=== PATIENT | male | born 1990 | race Caucasian/White ===

== ENCOUNTER 2023-03-09 17:00 | Emergency (ER) | payer OTHER, SELFPAY ==
--- NOTE | 2023-03-09 17:16 | ED.URI ---
HPI - URI/Sore Throat General Chief Complaint: Upper Respiratory Infection Stated Complaint: Needs Official COVID Paperwork Time Seen by Provider: 03/09/23 17:20 Source: patient Mode of arrival: ambulatory Limitations: no limitations History of Present Illness HPI Narrative: Wood is a 33-year-old male patient presenting to the clinic today with complaints of chest congestion and a cough since Sunday evening. He reports he took an at-home COVID testing was positive this morning in his work is needing documentation of this. He denies any fever chills. He denies any shortness of breath or chest pain. MD elicited complaint: sore throat and nasal congestion Related Data Home Medications Medication Instructions Recorded Confirmed No Home Medications 03/09/23 03/09/23 Allergies Allergy/AdvReac Type Severity Reaction Status Date / Time No Known Allergies Allergy Verified 03/09/23 17:13 Review of Systems Review of Systems: Pertinent positives per HPI. Patient denies any fever, chills, rash, headache, visual changes, dizziness,shortness of breath, chest pain, palpitations, nausea, vomiting, diarrhea, constipation, abdominal pain, or any urinary issues. PMFSH Comments At the time of my signature, I reviewed and agree with the nursing past medical, surgical, social, and family history. There is no relevant family history pertinent to the patient complaint. Exam Narrative: General: Well-developed, well nourished, in no apparent distress Head: Normocephalic, atraumatic Eyes: Pupils equally round and reactive to light bilaterally, EOM intact, sclera and conjunctive clear, no discharge, lids normal Ears: TMs intact and clear, ear canals clear, no drainage, grossly hearing normal. Nose: Nares patent, clear discharge, no inflammation, no sinus tenderness. Mouth: Oral pharynx without lesions or masses, good dentition, MMM. Neck: Supple, trachea midline, no enlargement of anterior or posterior cervical nodes, no thyroid masses or goiter palpable. Cardio: Regular rate and rhythm, s1 and s2 normal, no murmur appreciated. Resp: Clear to auscultation bilaterally, no rhonchi, rales, wheezing or rubs Course Course Emergency Course: Portions of this record may have been created with voice recognition software. Level of Care: Express Care Visit Vital Signs Vital signs: Vital Signs Temperature 36.9 C 03/09/23 17:17 Pulse Rate 88 03/09/23 17:17 Respiratory Rate 18 03/09/23 17:17 Blood Pressure 120/70 03/09/23 17:17 Pulse Oximetry 99 03/09/23 17:17 Oxygen Delivery Room Air 03/09/23 17:17 Temperature 36.9 C 03/09/23 17:17 Pulse Rate 88 03/09/23 17:17 Respiratory Rate 18 03/09/23 17:17 Blood Pressure 120/70 03/09/23 17:17 Pulse Oximetry 99 03/09/23 17:17 Oxygen Delivery Room Air 03/09/23 17:17 Vital signs reviewed MDM - URI/Sore Throat MDM Narrative Medical decision making narrative: At the time of visit patient is resting comfortably on the exam table. Patient took a at home COVID test and was positive. Patient is not meeting criteria for antivirals and his symptoms are mild. He is nontoxic appearing. SpO2 is 99% on room air denies any shortness of breath. Work note was given to the patient. Supportive measures were discussed and he voiced understanding the discharge instructions and agrees to treatment plan. Return precautions were reviewed Differential Diagnosis Differential diagnosis: Likely upper respiratory infection, otitis media, sinusitis, viral infection, bronchitis, influenza, pharyngitis and other Discharge Plan Discharge Clinical Impression: COVID-19 Patient Disposition: Home, Self-Care Condition: Stable Instructions: Antibiotic Form, COVID-19 (Coronavirus Disease 2019) (ED), How to Recover from COVID-19 at Home (ED) Additional Instructions: Patient tested positive for COVID at home today. May take DayQuil/NyQuil for cold/flu sy
[2023-03-09 17:17] VITALS: BP 120/70; PULSE 88; RESP 18; TEMP 36.9; O2SAT 99
== END 2023-03-09 17:32 | disposition home or self-care (01) ==
PROVIDERS: Emergency Provider Nurse Practitioner Family; PCP Internal Medicine Infectious Disease
DX: U07.1 COVID-19 (principal)
CPT/HCPCS: 99202; G0463